=== PATIENT | female | born 2000 | race Caucasian/White ===

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

== ENCOUNTER 2024-06-25 12:00 | Outpatient (RCR) | payer SELFPAY ==
--- NOTE | 2024-02-02 11:57 | HP.PTEVAL ---
Patient's Visit Information Visit Information Visit Information: IRINOE ESCAMILLA is a 23 year old F referred to Physical Therapy by Dr. Scott Adrian MD with a diagnosis of ANTEROLISTHESIS OF LUMBAR SPINE. Date of Evaluation: 01/24/24 Physical Therapist: Birdie Clark PT, Cert MDT Visit Plan Frequency: 2x /Week Duration: 4-6 Weeks Plan: *CHECK MRI RESULTS (Consider Jimenez's extension principle of treatment based on today's testing - retest monitoring foot sx's closely). Consider Aquatic Therapy. Neutral Spine Core Stability Exercises and Ceci LE Hip Flexor, Hamstring and Calf Stretching to help reduce stress to the Lumbar Spine with all Daily Activities. Instruction in Proper Posture Control, Body Mechanics, and Appropriate Activity Modifications. HEP Instruction. Subjective Subjective: Work/Leisure: [employer]IVES [employer] AND WORKS AT A [employer]. WORKING ABOUT 9 HOURS A WEEK. NO CHILDREN. 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 Present symptoms: CENTRAL LOW BACK PAIN. PATIENT DENIES CECI LE PAIN, NUMBESS AND TINGLING. Present since: 2017 Pain Scale: WORST 8/10, LEAST 1/10 Currently: 1/10 Is it getting better, worse or staying the same: STAYING THE SAME Commenced as a result of: NO APPARENT REASON OTHER THAN A FALL IN 2017 Symptoms at onset: BACK PAIN AND MAYBE LEG PAIN Worse: STANDING, BENDING OVER, A LOT OF ACTIVITY, LIFTING, SOMETIMES LYING DOWN Better: SITTING, RESTING, DECOMPRESSION, CHIROPRACTOR, ORTHOTICS Disturbed sleep: YES Previous history/Previous treatment: A LOT OF CHIROPRACTIC, ORTHOTICS, DECOMPRESSION, OTC PAIN MEDICATION Treatment this episode: CHIROPRACTIC Coughing/sneezing/straining: NEGATIVE FOR INCREASED PAIN Gait: TIME AND DISTANCE LIMITED DUE TO PAIN Bowel or Bladder Dysfunction: NO Accidents: NO Unexplained weight loss: NO Imaging: X-RAYS AT [facility] - RESULTS WITH DR. ADRIAN. MRI AT [facility] - GOING TO GO OVER WITH DR. ADRIAN AT NEXT [facility]RE[facility]'T NEXT WK - HAVE DISC. PMH/Recent major surgery: ALLERGIES, LYMES DZ, LONG COVID. Objective Objective: Sitting/Standing Posture: MILD ANTERIOR PELVIC TILT. NO RELEVANT LATERAL SHIFT Active Correction of posture: BETTER Other Observations: INDEP GAIT AND TRANSFERS. MOM IS WITH PATIENT THROUGHOUT SESSION AND HELFUL WITH HISTORY AND TREATMENT. Sensory deficit: ALTERED SENSATION L THIGH. APPEARS TO HAVE HYPERSENSATIVITY OF L THIGH. ROM deficit: CECI HIP FLEXOR, HS AND CALF TIGHTNESS. Motor deficit: CECI LE'S 5/5 Reflex's: 2+ CECI LE'S. Dural Signs: NEGATIVE CECI LE'S. Lumbar mvmt loss: flex - NIL - INCREASES - W ext - MOD - DECREASES - B R SG - MIN - NE L SG - MIN - NE Core strength: FAIR Palpation: NO ACUTE LUMBAR, SACRAL OR HIP TENDERNESS. OTHER: AFTER TESTING PATIENT MENTIONED FOOT PAIN. THIS NEEDS TO BE CORRELATED WITH TESTING NEXT VISIT. TREATMENT: NEUROMUSCULAR REEDUCATION - RETRAINING OF MVMT AND POSTURE FOR SITTING, LYING AND STANDING ACTIVITIES. INSTRUCTED PATIENT TO MAINTAIN NEUTRAL SPINE UNTIL NEXT VISIT AND RECOMMENDED AVOIDING/MINIMIZING BENDING, LIFTING AND TWISTING. SHE RESPONDED WELL TO LUMBAR SUPPORT IN SITTING IN THE CLINIC TODAY. Balance/Special Test Scores Oswestry Low Back Score: 18 Goals Goal 1:: DECREASE C/O LBP BY AT LEAST 80% TO EASE ADL AND WORK FUNTION Goal Time Frame: 6-8 Weeks Goal 2:: PATIENT WILL BE ABLE TO STAND AND WALK FOR AT LEAST 30 MIN WITHOUT AGGREVATION OF SYMPTOMS TO EASE ADL AND WORK FUNCTION. Goal Time Frame: 6-8 Weeks Goal 3:: PATIENT WILL BE ABLE TO ACTIVELY MAINTAIN PROPER POSTURE CONTROL WITHOUT CUEING THROUGHOUT THERAPY SESSION TO DEMONSTRATE IMPROVED STRENGTH. Goal Time Frame: 6-8 Weeks Goal 4:: INCREASE PAINFREE LUMBAR ROM TO WFL ALL PLANES. Goal Time Frame: 6-8 Weeks Goal 5:: PATIENT WILL BE INDEP WITH HEP FOR CONTINUED IMPROVEMENT ONCE FORMAL PHYSICAL THERPAY CONCLUDES. Goal Time Frame: 6-8 Weeks Goal 6:: PATIENT WILL SCORE AT LEAST 8 POINTS BETTER ON BACK OSWESTRY QUESTIONNAIRE Goal Time Frame: 6-8 Weeks Rehabilitation Potential Physical Therapy Diagnosis: CORE WEAKNESS. LE AND POSTURAL TIGHTNESS. LUMBAR MVMT LOSS. Anticipated Interventions Patient/Client Instruction: Educate patient on: Condition, Plan of Care and Risk Factors For the Purpose of:: To improve self management Therapeutic Exercise to Include: Strength training, Body mechanics, Postural training, Flexibilty training, Neuromotor development, In an aquatic setting, Dynamic Lumbar Stabilization and Scapular Strength/Stabilization For the Purpose of:: To decrease pain, To improve muscle performance and motor function, To increase tolerance to activity/condition/position, To improve ability of physical actions for home/community/work/leisure, To improve gait and locomotor functions, To increase flexibility/ROM and To improve self management TENS: Yes IF ES: Yes Cryotherapy (ice pack, ice massage): Yes Thermo therapy (hot pack): Yes Ultrasound (thermal/non thermal): Yes For the Purpose of:: To decrease pain and To improve nutrient delivery to tissue Text: Thank you for the opportunity to evaluate your patient. For Medicare and Medicare HMO plans, please review the plan of care and approve it. It will need to be FAXED BACK to us at [phone] for Medicare purposes. For Medicare only, by signing this I certify the plan of care. Please let me know if there are questions or concerns regarding this plan of care. Physician Signature: Date:
--- NOTE | 2024-03-13 15:07 | HP.PTREVAL ---
Re-Evaluation Intro: Dr. Scott Roldan MD, It has been my pleasure to treat IRINEO ESCAMILLA over the last 11 visits for ANTEROLISTHESIS OF LUMBAR SPINE. Please see the progress note below for an update on the physical therapy plan of care! Subjective Subjective: PATIENT REPORTS HER BACK IS STRONGER. SHE STATES SHE GENERALLY HAS LESS PAIN AROUND THE CLOCK WITH HER NORMAL DAILY ACTIVITIES NOW. 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 MOM SAYS SHE IS DOING MORE IN GENERAL AND ASKING FOR HELP AND PAIN MEDICINE LESS IN GENERAL. MOM SAYS IT IS A REALLY A PRETTY BIG IMPROVMENT. MOM STATES THEY ARE NOT INTERESTED IN INJECTIONS OR SURGERY IF THEY CAN AVOID THEM. Objective Objective/Function: THIS PATIENT IS MAKING PROGRESS WITH PT AND IS A GOOD CANDIDATE TO CONTINUE AQUATIC THERAPY BASED ON PROGRESS MADE AND ROOM FOR FURTHER IMPROVEMENT. PATIENT STATES SHE IS HAPPY WITH HER PROGRESS AND MOM IS AGREEABLE WITH CONTINUED PT. UPON EXAM TODAY: Sensory deficit: PATIENT CONTINUES TO HAVE ALTERED SENSATION L THIGH COMPARED TO R. ROM deficit: MILD CECI HIP FLEXOR, HS AND CALF TIGHTNESS. Motor deficit: CECI LE'S 5/5 Dural Signs: NEGATIVE CECI LE'S. Lumbar mvmt loss: flex - NIL - INCREASES - NW ext - MOD - NE R SG - MIN - NE L SG - MIN - P L LBP - NW. C/O LBP WITH PROLONGED STANDING ALLEVIATED WITH PPT. RESPONDED WELL TO POSTURE CORRECTION IN STANDING TODAY AND GIVEN INSTRUCTION FOR POSTURE CORRECTION FOR STANDING AND WALKING AND HOME EX FOR PPT IN LYING. Plan Plan Plan: CONTINUE AQUATIC THERAPY FOR PAIN RELIEF 2X'S A WK X 10 VISITS FOLLOWED BY PT RE-CHECK. PATIENT AND MOM AGREEABLE TO POC. FEMALE THERAPISTS ONLY REQUESTED. Neutral Spine Core Stability Exercises and Ceci LE Hip Flexor, Hamstring and Calf Stretching to help reduce stress to the Lumbar Spine with all Daily Activities. Instruction in Proper Posture Control, Body Mechanics, and Appropriate Activity Modifications. HEP Instruction. Balance/Gait/Functional tests Balance/Special Test Scores Oswestry Low Back Score: 11 Goals Goals Goal 1:: DECREASE C/O LBP BY AT LEAST 80% TO EASE ADL AND WORK FUNTION Goal Time Frame: 6-8 Weeks Goal Progress: Progressing Goal 2:: PATIENT WILL BE ABLE TO STAND AND WALK FOR AT LEAST 30 MIN WITHOUT AGGREVATION OF SYMPTOMS TO EASE ADL AND WORK FUNCTION. Goal Time Frame: 6-8 Weeks Goal Progress: Progressing Goal 3:: PATIENT WILL BE ABLE TO ACTIVELY MAINTAIN PROPER POSTURE CONTROL WITHOUT CUEING THROUGHOUT THERAPY SESSION TO DEMONSTRATE IMPROVED STRENGTH. Goal Time Frame: 6-8 Weeks Goal Progress: Progressing Goal 4:: INCREASE PAINFREE LUMBAR ROM TO WFL ALL PLANES. Goal Time Frame: 6-8 Weeks Goal Progress: Progressing Goal 5:: PATIENT WILL BE INDEP WITH HEP FOR CONTINUED IMPROVEMENT ONCE FORMAL PHYSICAL THERPAY CONCLUDES. Goal Time Frame: 6-8 Weeks Goal Progress: Progressing Goal 6:: PATIENT WILL SCORE AT LEAST 8 POINTS BETTER ON BACK OSWESTRY QUESTIONNAIRE Goal Time Frame: 6-8 Weeks Goal Progress: Progressing Anticipated Interventions Anticipated Interventions Patient/Client Instruction: Educate patient on: Condition, Plan of Care and Risk Factors For the Purpose of:: To improve self management Therapeutic Exercise to Include: Strength training, Body mechanics, Postural training, Flexibilty training, Neuromotor development, In an aquatic setting, Dynamic Lumbar Stabilization and Scapular Strength/Stabilization For the Purpose of:: To decrease pain, To improve muscle performance and motor function, To increase tolerance to activity/condition/position, To improve ability of physical actions for home/community/work/leisure, To improve gait and locomotor functions, To increase flexibility/ROM and To improve self management TENS: Yes IF ES: Yes Cryotherapy (ice pack, ice massage): Yes Thermo therapy (hot pack): Yes Ultrasound (thermal/non thermal): Yes For the Purpose of:: To decrease pain and To improve nutrient delivery to tissue Re-Evaluation Ending Re-evaluation ending: Please do not hesitate to contact me at [phone] by phone or if you have questions or concerns regarding this new plan of care! Sincerely, Birdie Clark, PT, Cert MDT
--- NOTE | 2024-04-26 14:05 | HP.PTREVAL ---
Re-Evaluation Intro: Dr. Scott Adrian MD, It has been my pleasure to treat IRINEO ESCAMILLA over the last 18 visits for ANTEROLISTHESIS OF LUMBAR SPINE. Please see the progress note below for an update on the physical therapy plan of care! Subjective Subjective: PATIENT REPORTS HER GENERAL PAIN IS A LOT LESS AND STATES I CAN HOLD MY OWN BACK NOW. SHE STATES IF SHE DIDN'T SIT ON A CHAIR WITH A BACK BEFORE SHE COULDN'T HOLD HER OWN BACK AND SHE CAN NOW. SHE STATES SOMETIMES BENDING OVER GOES GOOD AND SOMETIMES IT DOESN'T - IT DEPENDS ON THE DAY. SHE STATES SHE ISN'T TAKING ANY PAIN MEDICINE - PRESCRIPTION OR OTC. PATIENT STATES SHE PLANS TO CONTINUE THE EX'S WE HAVE GIVEN HER AT HOME AT THIS POINT. STATES SHE WOULD LIKE TO STOP PT. Objective Objective/Function: PATIENT WAS SEEN TODAY FOR RE-ASSESSMENT OF PROGRESS TOWARD THE SET PT GOALS AND THE NEED FOR FURTHER PHYSICAL THERAPY VS READINESS FOR DISCHARGE. THIS PATIENT IS MAKING PROGRESS WITH PT AND IS A GOOD CANDIDATE TO CONTINUE AQUATIC THERAPY BASED ON PROGRESS MADE AND ROOM FOR FURTHER IMPROVEMENT. PATIENT STATES SHE IS HAPPY WITH HER PROGRESS AND MOM IS AGREEABLE. PATIENT AND MOM ARE HAVING A HARD TIME DECIDING TO CONTINUE PT OR NOT AND REALLY DO NOT WANT TO DO PAIN MGMT OR SURGERY IF POSSIBLE TO AVOID BUT PATIENT IS STILL IN PAIN. UPON EXAM TODAY: Sensory deficit: PATIENT CONTINUES TO HAVE ALTERED SENSATION L THIGH COMPARED TO R. ROM deficit: CECI LE'S WFL Motor deficit: CECI LE'S 5/5 Dural Signs: NEGATIVE CECI LE'S. Lumbar mvmt loss: flex - NIL ext - MOD - P LBP - W R SG - MIN - P LBP - W L SG - MIN - P L LBP - NW. C/O LBP WITH PROLONGED STANDING AND NOT ALLEVIATED WITH PPT TODAY. RESPONDED WELL TO POSTURE CORRECTION IN SITTING BUT NOT STANDING TODAY. IN GENERAL PAIN IS STILL EASILY PRODUCED. PATIENT AND MOM DECIDED FOR PATIENT TO CONTINUE TO TRY HEP FOR ABOUT A MONTH AND THEN THEY WILL CONTACT DR. ADRIAN IF SHE IS NOT IMPROVING. Plan Plan Plan: HOLD CHART X 4 TO 6 WKS. Balance/Gait/Functional tests Balance/Special Test Scores Oswestry Low Back Score: 9 Goals Goals Goal 1:: DECREASE C/O LBP BY AT LEAST 80% TO EASE ADL AND WORK FUNTION Goal Time Frame: 6-8 Weeks Goal Progress: Progressing Goal 2:: PATIENT WILL BE ABLE TO STAND AND WALK FOR AT LEAST 30 MIN WITHOUT AGGREVATION OF SYMPTOMS TO EASE ADL AND WORK FUNCTION. Goal Time Frame: 6-8 Weeks Goal Progress: Progressing Goal 3:: PATIENT WILL BE ABLE TO ACTIVELY MAINTAIN PROPER POSTURE CONTROL WITHOUT CUEING THROUGHOUT THERAPY SESSION TO DEMONSTRATE IMPROVED STRENGTH. Goal Time Frame: 6-8 Weeks Goal Progress: Progressing Goal 4:: INCREASE PAINFREE LUMBAR ROM TO WFL ALL PLANES. Goal Time Frame: 6-8 Weeks Goal Progress: Progressing Goal 5:: PATIENT WILL BE INDEP WITH HEP FOR CONTINUED IMPROVEMENT ONCE FORMAL PHYSICAL THERPAY CONCLUDES. Goal Time Frame: 6-8 Weeks Goal Progress: Progressing Goal 6:: PATIENT WILL SCORE AT LEAST 8 POINTS BETTER ON BACK OSWESTRY QUESTIONNAIRE Goal Time Frame: 6-8 Weeks Goal Progress: Goal Met Anticipated Interventions Anticipated Interventions Patient/Client Instruction: Educate patient on: Condition, Plan of Care and Risk Factors For the Purpose of:: To improve self management Therapeutic Exercise to Include: Strength training, Body mechanics, Postural training, Flexibilty training, Neuromotor development, In an aquatic setting, Dynamic Lumbar Stabilization and Scapular Strength/Stabilization For the Purpose of:: To decrease pain, To improve muscle performance and motor function, To increase tolerance to activity/condition/position, To improve ability of physical actions for home/community/work/leisure, To improve gait and locomotor functions, To increase flexibility/ROM and To improve self management TENS: Yes IF ES: Yes Cryotherapy (ice pack, ice massage): Yes Thermo therapy (hot pack): Yes Ultrasound (thermal/non thermal): Yes For the Purpose of:: To decrease pain and To improve nutrient delivery to tissue Re-Evaluation Ending Re-evaluation ending: Please do not hesitate to contact me at [phone] by phone or if you have questions or concerns regarding this new plan of care! Sincerely, Birdie Clark, PT, Cert MDT
--- NOTE | 2024-06-25 13:56 | HP.PTDCSUM_ITS ---
Discharge Summary D/C summary: It has been my pleasure to treat IRINEO ESCAMILLA referred by Dr. Scott Adrian MD, with the diagnosis of ANTEROLISTHESIS OF LUMBAR SPINE for a total of 25 visit(s). Discharge Date: 06/25/24 Please see the following information for a summary of their discharge status. Subjective Subjective: PATIENT REPORTS SHE IS HAVING LESS PAIN BENDING SINCE LAST RE-CHECK. SHE REPORTS SHE STILL GETS PAIN STANDING AND PAIN IN STANDING IS WHAT LIMITS HE R THE MOST. IT IS BETTER BUT STILL A PROBLEM. SHE REPORTS GETTING PAIN IN STANDING AFTER ABOUT 10 TO 15 MINUTES, IT GETS MORE SEVERE AT ABOUT 30 MIN IN STANDING AND SHE CAN'T REALLY STAND MORE THAN ABOUT 1.5 HOURS. PATIENT REPORTS SHE HASN'T DONE HER NEW HOME EX'S FROM LAST VISIT MUCH SHE SHOULD HAVE AND SHE IS HOPEFUL IF SHE DOES THAT SHE WILL BENEFIT FORM THEM. PATIENT AND MOM REPORT IT IS GOING TO BE HARD TO COME TO PT CONSISTENTLY IN THE FUTURE DUE TO DAIRY FARMING ETC SO AT THIS POINT THEIR PLAN IS FOR PATIENT TO CONTINUE EX'S AT HOME AND SEE HOW SHE DOES. Pain LB: Pain Intensity (Out of 10): 1 B shoulders: Pain Intensity (Out of 10): 3 L knee: Pain Intensity (Out of 10): 4 Neck: Pain Intensity (Out of 10): 1 Overall Improvement % Improvement: 85 Objective Objective/Function: PATIENT WAS SEEN TODAY FOR RE-ASSESSMENT OF PROGRESS TOWARD THE SET PT GOALS AND THE NEED FOR FURTHER PHYSICAL THERAPY VS READINESS FOR DISCHARGE. UPON EXAM TODAY: Sensory deficit: PATIENT CONTINUES TO HAVE ALTERED SENSATION L THIGH COMPARED TO R IN THE REGION OF THE L DISTAL LATERAL THIGH ONLY NOW. DTR'S: CECI LE'S 2+ ROM deficit: CECI LE'S WFL Motor deficit: CECI LE'S 5/5 Dural Signs: NEGATIVE CECI LE'S. Lumbar mvmt loss: flex - NIL ext - MIN TO MOD R SG - MIN - P LBP - NW L SG - NIL C/O CENTRAL LBP WITH FIRST R SG BUT NOT REP RSG TODAY AND THAT IS THE ONLY C/O PAIN TODAY. PATIENT DECIDED TO CONTINUE TO TRY HEP AT THIS POINT AND THEN SHE WILL CONTACT DR. ADRIAN FOR FOLLOW UP NEEDED. Goals Goal 1:: DECREASE C/O LBP BY AT LEAST 80% TO EASE ADL AND WORK FUNTION Goal Progress: Goal Met Goal 2:: PATIENT WILL BE ABLE TO STAND AND WALK FOR AT LEAST 30 MIN WITHOUT AGGREVATION OF SYMPTOMS TO EASE ADL AND WORK FUNCTION. Goal Progress: Progressing Goal 3:: PATIENT WILL BE ABLE TO ACTIVELY MAINTAIN PROPER POSTURE CONTROL WITHOUT CUEING THROUGHOUT THERAPY SESSION TO DEMONSTRATE IMPROVED STRENGTH. Goal Progress: Goal Met Goal 4:: INCREASE PAINFREE LUMBAR ROM TO WFL ALL PLANES. Goal Progress: Progressing Goal 5:: PATIENT WILL BE INDEP WITH HEP FOR CONTINUED IMPROVEMENT ONCE FORMAL PHYSICAL THERPAY CONCLUDES. Goal Progress: Goal Met Goal 6:: PATIENT WILL SCORE AT LEAST 8 POINTS BETTER ON BACK OSWESTRY QUESTIONNAIRE Goal Progress: Goal Met Plan Plan: D/C TO HEP D/C Information d/c sentence: If there are questions or concerns regarding this patient's physical therapy, please feel free to call me at [phone]. Thank you for the referral of this patient. Sincerely, Birdie Clark, PT, Cert MDT Balance/Gait/Functional tests Balance/Special Test Scores Oswestry Low Back Score: 9 Improvement % Improvement: 85
== END 2024-06-25 19:00 | disposition home or self-care (01) ==
LOC: PT 12:00
PROVIDERS: PCP Family Medicine; Referring Provider Orthopaedic Surgery Orthopaedic Surgery of the Spine; Visit Provider Orthopaedic Surgery Orthopaedic Surgery of the Spine
DX: M43.16 Spondylolisthesis, lumbar region (principal)
CPT/HCPCS: 97112; 97113; 97162; 97530